=== PATIENT | male | born 1990 | race Caucasian/White ===

== ENCOUNTER 2016-11-30 13:42 | Emergency (ER) | payer BC, OTHER ==
[~2016-11-30] VITALS: Ht 162.6 cm; Wt 94.0 kg
[2016-11-30 13:53] VITALS: BP 137/77
--- NOTE | 2016-11-30 16:51 | NUR ---
PATIENT LEFT WITHOUT BEING SEEN BY DR. RANDOLPH. NO FURTHER CARE PROVIDED FOR PATIENT.
== END 2016-11-30 16:51 | disposition left against medical advice (07) ==
LOC: MED 13:42
DX: R06.4 Hyperventilation (principal); R11.0 Nausea; Z53.21 Procedure and treatment not carried out due to patient leaving prior to being seen by health care provider
CPT/HCPCS: 96372; 99285

== ENCOUNTER 2016-11-30 18:53 | Emergency (ER) | payer BC ==
[~2016-11-30] VITALS: Ht 162.6 cm; Wt 93.9 kg
[2016-11-30 19:02] VITALS: BP 153/80
--- NOTE | 2016-11-30 20:14 | NUR ---
PATIENT AMBULATED TO ER BED 4
[2016-11-30] MEDS ORDERED: ONDANSETRON 4 MG ODT PO ONE (20:20)
[2016-11-30] MEDS ORDERED: DICYCLOMINE HCL LIQUID 20 MG, ALUMINUM HYD/MAG/SIMETHICONE 30 ML, LIDOCAINE VISCOUS 2% ... PO ONE ×3 (20:20)
--- NOTE | 2016-11-30 20:35 | NUR ---
26Y/M PATIENT PRESENTS TO ED WITH C/O ANXIETY . PT STATES HAVING ANXIETY AND N/V X 3 DAYS. DENIES DIARRHEA; SKIN IS PINK/WARM/DRY; AAOX4 WITH EVEN AND STEADY GAIT; LUNGS CLEAR BL; HR EVEN AND REGULAR; PT DENIES ANY FEVER, CP, SOB, OR COUGH AT THIS TIME; PATIENT STATES PAIN OF 0/10 AT THIS TIME; VSS; PATIENT POSITIONED FOR COMFORT; HOB ELEVATED; BEDRAILS UP X2; BED DOWN. ER MD MADE AWARE OF PT STATUS.
[2016-11-30 21:04] LABS: ANION GAP 15.1 (8-16); CALCIUM 9.6 mg/dL (8.5-10.1); CARBON DIOXIDE 26.8 mmol/L (21-32); CREATININE 1.1 mg/dL (0.6-1.3); POTASSIUM 3.9 mmol/L (3.5-5.1)
[2016-11-30 21:10] LABS: ALBUMIN 4.4 g/dL (3.4-5.0); TOTAL BILIRUBIN 0.6 mg/dL (0.0-1.0); TOTAL PROTEIN, SERUM 8.9 g/dL (6.4-8.2)
--- NOTE | 2016-11-30 21:25 | NUR ---
Patient discharged with v/s stable. Written and verbal after care instructions given and explained. Patient alert, oriented and verbalized understanding of instructions. Ambulatory with steady gait. All questions addressed prior to discharge. ID band removed. Patient advised to follow up with PMD. Rx of ZOFRAN 4 MG, MAALOX given. Patient educated on indication of medication including possible reaction and side effects. Opportunity to ask questions provided and answered.
[2016-11-30 21:27] VITALS: BP 122/90
== END 2016-11-30 21:25 | disposition home or self-care (01) ==
LOC: MED 18:53
DX: R11.2 Nausea with vomiting, unspecified (principal); R10.10 Upper abdominal pain, unspecified; F12.90 Cannabis use, unspecified, uncomplicated
CPT/HCPCS: 36415; 80053; 83690; 99284; S0119; 99283

== ENCOUNTER 2016-12-03 07:44 | Inpatient (IN) | payer BC ==
[~2016-12-03] VITALS: Ht 162.6 cm; Wt 95.3 kg
[2016-12-03 07:47] VITALS: BP 125/70
--- NOTE | 2016-12-03 07:53 | NUR ---
Pt ambulated to bed 7 with steady gait.
--- NOTE | 2016-12-03 07:55 | NUR ---
26/M BIB SELF C/O N/V/D & EPIGASTRIUC PAIN X 3DAYS.PT STTED PT CAME HERE ON SATURDAY SAME S/S & WENT TO [facility] YESTERDAY ;GOT MEDS BUT DEOESN'T HELP. SKIN IS PINK/WARM/DRY; AAOX4 WITH EVEN AND STEADY GAIT; LUNGS CLEAR BL; HR EVEN AND REGULAR; PT DENIES ANY FEVER, CP, SOB, OR COUGH AT THIS TIME; PATIENT STATES PAIN OF 10/10 AT THIS TIME; VSS; PATIENT POSITIONED FOR COMFORT; HOB ELEVATED; BEDRAILS UP X2; BED DOWN. ER MD MADE AWARE OF PT STATUS.
--- NOTE | 2016-12-03 08:14 | NUR ---
ER MD DR POSADA EVALUATING PT AT BEDSIDE.
[2016-12-03] MEDS ORDERED: NACL 0.9% 2,000 ML IV ONE (08:20)
[2016-12-03] MEDS ORDERED: KETOROLAC 30 MG/ML VIAL IVP ONE (08:20)
[2016-12-03] MEDS ORDERED: ONDANSETRON 4 MG/2 ML VIAL IVP ONE (08:20)
[2016-12-03] MEDS ORDERED: METOCLOPRAMIDE 10 MG/2 ML INJ VIAL IVP ONE (08:20)
[2016-12-03 09:05] LABS: HEMATOCRIT 50.4 % (36-52); HEMOGLOBIN 16.9 g/dL (12.0-18.0); MEAN CORPUSCULAR HEMOGLOBIN 28 pg (27-31); MEAN CORPUSCULAR HGB CONC 34 g/dL (33-37); MEAN CORPUSCULAR VOLUME 84 fL (80-94); PLATELET COUNT (AUTO) 361 K/uL (140-450); RED BLOOD CELL COUNT(AUTO) 6.03 MIL/uL (4.20-6.10); RED CELL DISTRIBUTION WIDTH 11.9 % (11.6-13.7); WHITE BLOOD COUNT (AUTO) 17.1 K/uL (4.8-10.8)
[2016-12-03 09:07] LABS: CALCIUM 9.6 mg/dL (8.5-10.1); CARBON DIOXIDE 29.2 mmol/L (21-32); CREATININE 1.2 mg/dL (0.6-1.3); POTASSIUM 3.2 mmol/L (3.5-5.1)
--- NOTE | 2016-12-03 09:08 | NUR ---
PT STATED PT FEEL PANIC ATTACT. NOTIFIED ER MD DR POSADA. Addendum: 12/03/16 at 0922 by [email or web address] ATIVAN 2MG IV ORDERED. AFTER AMINISTERED ATIVAN,Patient appears to be resting comfortably in bed. Vital Signs within normal limits. Respirations even and unlabored. WILL CONTINUE TO MONITOR.
[2016-12-03] MEDS ORDERED: LORazepam 2 MG/ML VIAL IVP ONE (09:10)
[2016-12-03 09:12] LABS: ALBUMIN 4.5 g/dL (3.4-5.0); TOTAL BILIRUBIN 1.6 mg/dL (0.0-1.0); TOTAL PROTEIN, SERUM 9.1 g/dL (6.4-8.2)
[2016-12-03 09:18] LABS: INR 1.1 (0.8-1.2); PARTIAL THROMBOPLASTIN TIME 24.3 secs (22-35.6); PROTHROMBIN TIME 10.9 secs (10.8-13.4)
[2016-12-03 09:19] LABS: LYMPHOCYTES % (MANUAL) 13 % (20-46); NEUTROPHILS % (MANUAL) 81 (43-65)
[2016-12-03 09:20] LABS: EOSINOPHILS % (MANUAL) 2 % (0-4); MONOCYTES % (MANUAL) 4 % (5-12)
--- NOTE | 2016-12-03 09:20 | NUR ---
Patient appears to be resting comfortably in bed. Vital Signs within normal limits. Respirations even and unlabored.
[2016-12-03] MEDS ORDERED: LORazepam 2 MG/ML VIAL IVP PRN (09:50)
[2016-12-03] MEDS ORDERED: HYDROcodone/APAP 5/325 MG 1 TAB TAB PO PRN (09:50)
[2016-12-03] MEDS ORDERED: MORPHINE SULFATE 2 MG/ML SYR IVP PRN (09:50)
[2016-12-03] MEDS ORDERED: ACETAMINOPHEN 325 MG TAB PO PRN (09:50)
--- NOTE | 2016-12-03 10:38 | NUR ---
Patient will be admitted to care of DR MARROQUIN. Admited to MS. Will go to [id number]. Belongings list completed. Report to JANIA TREVINO.
[2016-12-03 11:30] VITALS: BP 139/74
[2016-12-03] MEDS ORDERED: KCL 20 MEQ/WATER INJ PREMIX 100 ML IV SCH (11:30)
--- NOTE | 2016-12-03 11:30 | NUR ---
PT ARRIVED IN [facility] FROM ER. PT IS ALERT AWAKE AND ORIENTED. INTRODUCED MYSELF. PT DENIES N&V OR PAIN AT THIS TIME. ORIENTED TO UNIT AND ROOM. STARTED PT ON IVF ORDERED. CALLED AND ORDERED SCDS ORDERED. PT HAS IV ON L HAND 20 G. PT STILL IS EXPERIENCING DIARRHEA. CALL LIGHT WITHIN REACH. WILL CONTINUE TO MONITOR.
[2016-12-03] MEDS: DEXT 5% /NACL 0.9% 1,000 ML IV SCH ×2 (11:34→20:33)
[2016-12-03] MEDS: METOCLOPRAMIDE 10 MG/2 ML INJ VIAL IVP SCH ×3 (11:46→23:03)
[2016-12-03 12:00] VITALS: BP 139/74
--- NOTE | 2016-12-03 12:30 | NUR ---
DR KIMBALL U/S ROSI, WILL KEEP PT NPO FOR 6 HOURS. PT VERBALIZED UNDERSTANDING.
--- NOTE | 2016-12-03 13:00 | NUR ---
PT WANTED TO TAKE SHOWER. WRAPPED PT'S IV. PT DENIES ANY DIZZINESS. WILL ASSIST AND MONITOR.
--- NOTE | 2016-12-03 14:40 | NUR ---
PT IS SLEEPING. NO DISTRESS NOTED. CALL LIGHT WITHIN REACH. WILL CONTINUE TO MONITOR.
[2016-12-03 16:00] VITALS: BP 129/60
--- NOTE | 2016-12-03 16:40 | NUR ---
PT STATED HIS ARM IS HURTING FROM IV. REASSURED PT THAT POTASSIUM CAUSES PAIN WHICH IS NORMAL. NO INFILTRATION NOTED. WILL CONTINUE TO MONITOR.
--- NOTE | 2016-12-03 17:40 | NUR ---
PT HAD AN EPISODE OF DIARRHEA. WILL CONTINUE TO MONITOR.
--- NOTE | 2016-12-03 17:50 | NUR ---
PT REQUESTED TO TAKE ANOTHER SHOWER. WRAPPED IV. ASSISTED PT TO SHOWER.
[2016-12-03] MEDS: ONDANSETRON 4 MG/2 ML VIAL IVP PRN (18:37)
--- NOTE | 2016-12-03 19:19 | NUR ---
ENDORSED CARE OF PT TO WATER REGULATOR AND VALVE REPAIRER NURSE. PT IN STABLE CONDITION.
--- NOTE | 2016-12-03 19:30 | NUR ---
RECEIVED REPORT FROM DAY RN AT BEDSIDE, PATIENT IS AAOX4 ON ROOM AIR, NO SOB OR SIGN OF DISTRESS AT THIS TIME, IV TO LEFT HAND PATENT AND INTACT, PATIENT DENIES PAIN AT THIS TIME, SKIN INTACT, DISCUSSED PLAN OF CARE WITH PATIENT, PATIENT VERBALIZED UNDERSTANDING, CALL LIGHT WITHIN REACH. WILL CONTINUE TO MONITOR.
[2016-12-03 19:54] LABS: AMPHETAMINE, URINE NEG. ng/ml (NEG <=1000); BARBITURATE, URINE NEG. ng/ml (NEG <=200); BENZODIAZEPINE, URINE NEG. ng/mL (NEG <=200); CANNABINOID, URINE POS. ng/mL (NEG <=50); COCAINE, URINE NEG. ng/mL (NEG <=300); OPIATE, URINE NEG. ng/mL (NEG <=2000); PHENCYCLIDINE SCREEN,URINE NEG. ng/mL (NEG <=25)
--- NOTE | 2016-12-03 22:15 | NUR ---
PATIENT ASKED TO TAKE SHOWER, PATIENT STABLE, ASSISTED TO SHOWER, WILL CONTINUE TO MONITOR
--- NOTE | 2016-12-03 23:08 | NUR ---
PATIENT VOMITING , ADMINISTERED REGLAN PER MD ORDER, WILL CONTINUE TO MONITOR.
[2016-12-04] VITALS: BP 140/86
--- NOTE | 2016-12-04 00:15 | NUR ---
VITAL SIGNS STABLE, NO SOB OR SIGN OF DISTRESS, CALL LIGHT WITHIN REACH. WILL CONTINUE TO MONITOR.
[2016-12-04] MEDS: ONDANSETRON 4 MG/2 ML VIAL IVP PRN (03:03)
--- NOTE | 2016-12-04 03:11 | NUR ---
PATIENT NAUSEOUS AND STATING HE FEELS ANXIOUS, ADMINISTERED ZOFRAN PER MD ORDER AND ATIVAN PER MD ORDER, WILL CONTINUE TO MONITOR PATIENT
--- NOTE | 2016-12-04 05:00 | NUR ---
PATIENT RESTING IN BED, NO SIGN OF DISTRESS, WILL CONTINUE TO MONITOR
[2016-12-04] MEDS: DEXT 5% /NACL 0.9% 1,000 ML IV SCH (05:57)
[2016-12-04] MEDS: METOCLOPRAMIDE 10 MG/2 ML INJ VIAL IVP SCH (06:18)
--- NOTE | 2016-12-04 07:30 | NUR ---
ENDORSED PATIENT TO DAY RN AT BEDSIDE, PATIENT IN STABLE CONDITION
--- NOTE | 2016-12-04 07:30 | NUR ---
RECEIVED PATIENT REPORT AT BEDSIDE. PATIENT AWAKE, ALERT ORIENTED AND AMBULATORY. NO S/S OF DISTRESS NOTED. NO C/O PAIN AT THIS TIME. IV LINE NOTED TO THE LEFT HAND. BED LOWERED WITH CALL LIGHT WITHIN REACH. WILL CONTINUE TO MONITOR
[2016-12-04 07:32] LABS: BASOPHILS # (AUTO) 0.2 K/uL (0.00-0.22); BASOPHILS % (AUTO) 1.3 % (0.0-2.0); EOSINOPHILS # (AUTO) 0.2 K/uL (0-0.4); EOSINOPHILS % (AUTO) 1.5 % (0.0-4.0); HEMATOCRIT 45.6 % (36-52); HEMOGLOBIN 15.4 g/dL (12.0-18.0); LYMPHOCYTES # (AUTO) 2.2 K/uL (2.0-11.5); LYMPHOCYTES % (AUTO) 17.3 % (20.5-51.1); MEAN CORPUSCULAR HEMOGLOBIN 29 pg (27-31); MEAN CORPUSCULAR HGB CONC 34 g/dL (33-37); MEAN CORPUSCULAR VOLUME 84 fL (80-94); MONOCYTES # (AUTO) 0.6 K/uL (0.8-1.0); MONOCYTES % (AUTO) 4.5 % (1.7-9.3); NEUTROPHILS # (AUTO) 9.3 K/uL (1.8-7.7); NEUTROPHILS % (AUTO) 75.4 % (42.2-75.2); PLATELET COUNT (AUTO) 256 K/uL (140-450); RED BLOOD CELL COUNT(AUTO) 5.41 MIL/uL (4.20-6.10); RED CELL DISTRIBUTION WIDTH 12.1 % (11.6-13.7); WHITE BLOOD COUNT (AUTO) 12.5 K/uL (4.8-10.8)
[2016-12-04 07:56] LABS: ALBUMIN 3.9 g/dL (3.4-5.0); ANION GAP 13.2 (8-16); CALCIUM 8.6 mg/dL (8.5-10.1); POTASSIUM 3.2 mmol/L (3.5-5.1); TOTAL PROTEIN, SERUM 7.8 g/dL (6.4-8.2)
[2016-12-04 08:00] VITALS: BP 135/74
[2016-12-04] MEDS ORDERED: PANTOPRAZOLE 40 MG INJ VIAL IVP SCH (09:00)
--- NOTE | 2016-12-04 09:19 | NUR ---
PATIENT HAS BEEN SCREENED AND CATEGORIZED HIGH NUTRITION RISK. PATIENT WILL BE SEEN WITHIN 1-2 DAYS OF ADMISSION. 12/03/16-12/04/[address]
--- NOTE | 2016-12-04 10:36 | NUR ---
CONSENT FOR EGD OBTAINED FROM THE PATIENT. CONSENT FILED IN THE CHART
[2016-12-04] MEDS ORDERED: METOCLOPRAMIDE 10 MG/2 ML INJ VIAL IVP SCH (12:00)
--- NOTE | 2016-12-04 12:56 | NUR ---
SPOKE WITH DR POLLOCK. ORDERS TO RESUME THE DIET THE PATIENT WAS PREVIOUSLY ON. ORDERS TO PUT PATIENT NPO AFTER MIDNIGHT IF HIS VOMITING PERSISTS
--- NOTE | 2016-12-04 13:07 | NUR ---
PATIENT SEEN BY DR Niles MARROQUIN
--- NOTE | 2016-12-04 15:10 | NUR ---
CM NOTE PER CLASSIFIED ADVERTISING MANAGER MARGARET, TRACKING# [id number]. FAXED INITIAL REVIEW TO [facility] [phone]
--- NOTE | 2016-12-04 15:18 | NUR ---
12/04/16 RD INITIAL ASSESSMENT COMPLETED PLEASE REFER TO NUTRITION ASSESSMENT UNDER CARE ACTIVITY FOR ESTIMATED NUTRITIONAL NEEDS. 1. WHEN MEDICALLY FEASIBLE, RESUME PO DIET: CLEAR LIQUID DIET, ADVANCE TOLERATED TO REGULAR DIET 2. RD TO FOLLOW-UP 2-3 DAYS; HIGH RISK AMRIK OWEN RD
[2016-12-04 15:20] LABS: HEPATITIS A ANTIBODY IGM Negative (Negative); HEPATITIS A ANTIBODY TOTAL Positive (Negative); HEPATITIS B CORE AB TOTAL Negative (Negative); HEPATITIS B CORE, IGM Negative (Negative); HEPATITIS B SURFACE AB Reactive (.); HEPATITIS B SURFACE ANTIGEN Negative (Negative); HEPATITIS C VIRUS ANTIBODY <0.1 s/co ratio (0.0-0.9)
--- NOTE | 2016-12-04 15:48 | NUR ---
PATIENT REQUESTED TO LEAVE AMA. PATIENT INFORMED ABOUT THE RISKS OF GOING AMA. PATIENT VERBALIZED UNDERSTANDING. PATIENT SIGNED AMA FORM. IV LINE DISCONTINUED. PATIENT LEFT WITH ALL HIS BELONGINGS. DR Niles MARROQUIN PAGED
[2016-12-04] MEDS ORDERED: AMITRIPTYLINE 10 MG TAB PO SCH (21:00)
== END 2016-12-04 15:50 | disposition left against medical advice (07) | DRG 392 ==
LOC: MED 07:44 → MTU 09:54
PROVIDERS: ADMIT Preventive Medicine Preventive Medicine/Occupational Environmental Medicine; ATTEND Preventive Medicine Preventive Medicine/Occupational Environmental Medicine
DX: R10.9 Unspecified abdominal pain (principal); R11.2 Nausea with vomiting, unspecified; R74.0 Nonspecific elevation of levels of transaminase and lactic acid dehydrogenase [LDH]; R73.9 Hyperglycemia, unspecified; Z53.21 Procedure and treatment not carried out due to patient leaving prior to being seen by health care provider; E87.5 Hyperkalemia; D72.829 Elevated white blood cell count, unspecified; I10 Essential (primary) hypertension; R74.8 Abnormal levels of other serum enzymes; K76.0 Fatty (change of) liver, not elsewhere classified; F14.90 Cocaine use, unspecified, uncomplicated; Z72.89 Other problems related to lifestyle
CPT/HCPCS: 36415; 74000; 76705; 80053; 80305; 83605; 83690; 85025; 85610; 85730; 86704; 86706; 86708; 86709; 86803; 87040; 87081; 87086; 87340; 96374; 96375; 99285; C9113; J1885; J2060; J2405; J2765; J3480; J7030; J7042; Q0092

== ENCOUNTER 2017-03-30 23:31 | Emergency (ER) | payer BC ==
--- NOTE | 2017-03-30 23:56 | NUR ---
PATIENT LEFT WITHOUT BEING SEEN BY DR. BRAND. NO FURTHER CARE PROVIDED FOR PATIENT.
== END 2017-03-30 23:55 | disposition left against medical advice (07) ==
LOC: MED 23:31
DX: R11.10 Vomiting, unspecified (principal); R06.02 Shortness of breath; Z53.21 Procedure and treatment not carried out due to patient leaving prior to being seen by health care provider

== ENCOUNTER 2017-04-02 18:54 | Inpatient (IN) | payer BC ==
[~2017-04-02] VITALS: Ht 165.1 cm; Wt 81.3 kg
[2017-04-02 19:02] VITALS: BP 138/110
--- NOTE | 2017-04-02 19:15 | NUR ---
PLACED IN BED 6. HERE FOR NAUSEA,VOMITING,DIARRHEA,ABDOMINAL PAIN X 1 WEEK. MD AT BEDSIDE TO EVALUATE PT.
[2017-04-02] MEDS ORDERED: NACL 0.9% 1,000 ML IV SCH (19:24)
[2017-04-02] MEDS ORDERED: METOCLOPRAMIDE 10 MG/2 ML INJ VIAL IVP ONE (19:25)
[2017-04-02] MEDS ORDERED: PANTOPRAZOLE 40 MG INJ VIAL IVP ONE (19:25)
--- NOTE | 2017-04-02 19:40 | NUR ---
GAUGE 18 IV LINE ESTABLISHED TO THE LEFT AC. BLOOD DRAWN AND SENT TO THE LAB. NS 1 LITER BOLUS,REGLAN 5 MG IVP AND PROTONIX 40 MG IVP GIVEN ORDERED.
--- NOTE | 2017-04-02 19:52 | NUR ---
PT.BECAME VERY ANXIOUS AND RESTLESS. REQUESTED THAT FLUID BE STOPPED AND IV LINE TAKEN OUT. MADE AWARE.
[2017-04-02] MEDS ORDERED: diphenhydrAMINE 50 MG/ML VIAL IVP ONE ×2 (19:55→20:05)
--- NOTE | 2017-04-02 20:00 | NUR ---
GAUGE 20 IV LINE ESTABLISHED TO THE RIGHT HAND. IV FLUIDIV BENADRYL 25 MG IVP GIVEN ORDERED. IV FLUIDS RESUMED. PT.HOOKED TO THE MONITOR.
[2017-04-02 20:02] LABS: EOSINOPHILS # (AUTO) 0.1 K/uL (0-0.4)
[2017-04-02 20:10] LABS: BASOPHILS # (AUTO) 0.2 K/uL (0.00-0.22); BASOPHILS % (AUTO) 1.5 % (0.0-2.0); EOSINOPHILS % (AUTO) 0.8 % (0.0-4.0); HEMATOCRIT 52.6 % (36-52); HEMOGLOBIN 17.5 g/dL (12.0-18.0); LYMPHOCYTES # (AUTO) 2.7 K/uL (2.0-11.5); LYMPHOCYTES % (AUTO) 16.4 % (20.5-51.1); MEAN CORPUSCULAR HEMOGLOBIN 28 pg (27-31); MEAN CORPUSCULAR HGB CONC 33 g/dL (33-37); MEAN CORPUSCULAR VOLUME 84 fL (80-94); MONOCYTES # (AUTO) 1.2 K/uL (0.8-1.0); MONOCYTES % (AUTO) 7.1 % (1.7-9.3); NEUTROPHILS # (AUTO) 12.3 K/uL (1.8-7.7); NEUTROPHILS % (AUTO) 74.2 % (42.2-75.2); PLATELET COUNT (AUTO) 316 K/uL (140-450); RED BLOOD CELL COUNT(AUTO) 6.28 MIL/uL (4.20-6.10); RED CELL DISTRIBUTION WIDTH 11.9 % (11.6-13.7); WHITE BLOOD COUNT (AUTO) 16.5 K/uL (4.8-10.8)
--- NOTE | 2017-04-02 20:10 | NUR ---
PT.PULLED OUT RIGHT HAND IV LINE. PT. STILL RESTLES AND ANXIOUS. MADE AWARE.
--- NOTE | 2017-04-02 20:12 | NUR ---
ANOTHER DOSE OF BENADRYL 25 MG IVP GIVEN ORDERED.
[2017-04-02 20:18] LABS: ALBUMIN 4.5 g/dL (3.4-5.0); CARBON DIOXIDE 30.8 mmol/L (21-32); CREATININE 1.1 mg/dL (0.7-1.3); TOTAL BILIRUBIN 1.6 mg/dL (0.0-1.0)
[2017-04-02 20:19] LABS: ANION GAP 14.1 (8-16)
[2017-04-02 20:20] LABS: POTASSIUM 2.9 mmol/L (3.5-5.1)
[2017-04-02] MEDS ORDERED: KCL 20 MEQ/WATER INJ PREMIX 100 ML IV ONE (20:30)
--- NOTE | 2017-04-02 20:40 | NUR ---
URINE SPECIMEN COLLECTED. WILL SEND TO LAB. WENT FOR CT SCAN OF ABDOMEN AND PELVIS VIA WHEELCHAIR.
[2017-04-02 20:54] LABS: APPEARANCE,URINE CLEAR (CLEAR); BILIRUBIN,URINE NEGATIVE (NEGATIVE); BLOOD, URINE NEGATIVE (NEGATIVE); COLOR,URINE YELLOW (YELLOW); LEUKOCYTE ESTERASE ,URINE NEGATIVE (NEGATIVE); NITRITE, URINE NEGATIVE (NEGATIVE); PH,URINE 6.5 (5.0-9.0); UGLUCOSE NEGATIVE (NEGATIVE)
[2017-04-02] MEDS ORDERED: DOCUSATE SODIUM 100 MG GELCAP PO PRN (20:55)
[2017-04-02] MEDS ORDERED: ACETAMINOPHEN 325 MG TAB PO PRN (20:55)
[2017-04-02] MEDS ORDERED: ONDANSETRON 4 MG/2 ML VIAL IM/IVP PRN (20:55)
[2017-04-02] MEDS ORDERED: HYDROcodone/APAP 7.5/325 MG 1 TAB PO PRN (20:55)
[2017-04-02] MEDS ORDERED: MORPHINE SULFATE 2 MG/ML SYR IVP PRN (20:55)
--- NOTE | 2017-04-02 20:55 | NUR ---
BACK FROM CT SCAN. KCL 20 MEQ IV GIVEN TO RUN OVER 2 HOURS.
--- NOTE | 2017-04-02 21:15 | NUR ---
PORTABLE CXR DONE.
--- NOTE | 2017-04-02 21:20 | NUR ---
PT. ADMITTED TO TELEMETRY UNIT FOR HYPOKALEMIA, TRANSAMINITIS UNDER THE SERVICE OF . REPORT GIVEN TO CHAU DYKES. PT. GOING TO ROOM 116. PT. STABLE, MORE RELAXED. NAUSEA AND PAIN RESOLVED.
[2017-04-02 21:24] LABS: BARBITURATE, URINE NEG. ng/ml (NEG <=200); BENZODIAZEPINE, URINE NEG. ng/mL (NEG <=200); CANNABINOID, URINE POS. ng/mL (NEG <=50); COCAINE, URINE NEG. ng/mL (NEG <=300); OPIATE, URINE NEG. ng/mL (NEG <=2000); PHENCYCLIDINE SCREEN,URINE NEG. ng/mL (NEG <=25)
[2017-04-02] MEDS ORDERED: POTASSIUM CHLORIDE 20 MEQ, LIDOCAINE 1% 25 MG in NACL 0.9% 250 ML IV SCH (21:30)
[2017-04-02 21:34] LABS: CHOL/HDL RATIO 5.6 (1-4.5); FREE T4 (FREE THYROXINE) 1.47 ng/dL (0.76-1.46); MAGNESIUM 2.4 mg/dL (1.8-2.4); PHOSPHORUS 2.9 mg/dL (2.5-4.9); THYROID STIMULATING HORMONE 2.53 uIU/mL (0.34-3.74)
--- NOTE | 2017-04-02 21:37 | NUR ---
TRANSFERRED TO FLOOR VIA ACLS PROTOCOL STABLE. TRANSFER UNEVENTFUL.
[2017-04-02] MEDS ORDERED: KCL 20 MEQ/WATER INJ PREMIX 100 ML IV SCH (21:45)
--- NOTE | 2017-04-02 21:50 | NUR ---
ADMITTED PATIENT TO THE TELE UNIT, PATIENT AWAKE ALERT ORIENTED X4, NO S/S OF ACUTE DISTRESS NOTED, RESPIRATION EVEN AND UNLABORED, IV PATENT AND INTACT, INFUSING POTASSIUM CHLORIDE AT 50ML/HR. TELE MONITOR IS PLACED ON PATIENT. PLAN OF CARE DISCUSSED, PATIENT VERBALIZED UNDERSTANDING. CALL LIGHT WITHIN REACH, SAFETY MEASURE ENSURED, WILL CONTINUE TO MONITOR.
[2017-04-02] MEDS: NACL 0.9% 1,000 ML IV SCH (21:51)
[2017-04-02 22:05] VITALS: BP 143/57
--- NOTE | 2017-04-02 22:10 | NUR ---
DR. OBRIEN IS EXAMINING THE PATIENT AT THE BEDSIDE.
--- NOTE | 2017-04-03 01:02 | NUR ---
PATIENT IS SLEEPING AT THIS TIME, POTASSIUM CHLORIDE 20MEQ STILL RUNNING BECAUSE PATIENT TOOK A SHOWER AROUND 2330, DR. OBRIEN IS AWARE. CALL LIGHT WITHIN REACH, SAFETY MEASURE ENSURED, WILL CONTINUE TO MONITOR.
--- NOTE | 2017-04-03 03:37 | NUR ---
PATIENT IS OFF THE UNIT TO GET ABDOMINAL CT. PATIENT IS IN STABLE CONDITION.
[2017-04-03 04:07] VITALS: BP 138/73
--- NOTE | 2017-04-03 04:08 | NUR ---
PATIENT BACK FROM THE CT, NO S/S OF ACUTE DISTRESS NOTED, RESPIRATION EVEN AND UNLABORED, CALL LIGHT WITHIN REACH, SAFETY MEASURE ENSURED, WILL CONTINUE TO MONITOR.
[2017-04-03] MEDS: NACL 0.9% 1,000 ML IV SCH (04:50)
[2017-04-03 06:12] LABS: HEMATOCRIT 50.6 % (36-52); HEMOGLOBIN 16.5 g/dL (12.0-18.0); MEAN CORPUSCULAR HEMOGLOBIN 28 pg (27-31); MEAN CORPUSCULAR HGB CONC 33 g/dL (33-37); MEAN CORPUSCULAR VOLUME 85 fL (80-94); PLATELET COUNT (AUTO) 300 K/uL (140-450); RED BLOOD CELL COUNT(AUTO) 5.98 MIL/uL (4.20-6.10); RED CELL DISTRIBUTION WIDTH 11.9 % (11.6-13.7); WHITE BLOOD COUNT (AUTO) 13.9 K/uL (4.8-10.8)
--- NOTE | 2017-04-03 06:20 | NUR ---
PATIENT IS SLEEPING AT THIS TIME, NO S/S OF ACUTE DISTRESS NOTED, RESPIRATION EVEN AND UNLABORED, CALL LIGHT WITHIN REACH, SAFETY MEASURE ENSURED, WILL CONTINUE TO MONITOR.
[2017-04-03 06:21] LABS: ANION GAP 9.2 (8-16); CARBON DIOXIDE 35.8 mmol/L (21-32); CREATININE 1.1 mg/dL (0.7-1.3)
[2017-04-03 06:43] LABS: LYMPHOCYTES % (MANUAL) 25 % (20-46); MONOCYTES % (MANUAL) 7 % (5-12)
[2017-04-03 07:02] LABS: BILIRUBIN,DIRECT 0.2 mg/dL (0.0-0.3); TOTAL BILIRUBIN 1.3 mg/dL (0.0-1.0)
[2017-04-03 07:03] LABS: ALBUMIN 4.1 g/dL (3.4-5.0)
--- NOTE | 2017-04-03 07:15 | NUR ---
ENDORSED PLAN OF CARE TO DAY RN. PATIENT RESTING IN BED, NO S/S OF ACUTE DISTRESS, PATIENT IS IN STABLE CONDITION.
--- NOTE | 2017-04-03 07:22 | NUR ---
RECEIVED REPORT FROM SALON ASSISTANT NURSE, PT IS IN ROOM, FINISHED TAKING A SHOWER AT THIS TIME, PT IS A/OX4, AMBULATORY, IV IS ON THE LEFT AC PATENT, INTACT, FLUSHING WELL, SKIN IS INTACT, NO S/S OF RESPIRATORY DISTRESS OR DISCOMFORT NOTED, DISCUSSED PLAN OF CARE WITH PT, PT VERBALIZED UNDERSTANDING, SAFETY/FALL PRECAUTIONS ARE IN PLACE, CALL LIGHT WITHIN REACH, WILL CONTINUE TO MONITOR.
[2017-04-03 08:00] VITALS: BP 149/80
--- NOTE | 2017-04-03 09:40 | NUR ---
PATIENT ASKED HOW MUCH LONGER WAS HE GOING TO BE NPO. I LET THE PATIENT KNOW WE WERE WAITING FOR THE GI DOCTOR TO SEE HIM AND CLEAR HIM. I LET HIM KNOW I DID NOT KNOW THE EXACT TIME HE WOULD BE COMING IN.
--- NOTE | 2017-04-03 11:00 | NUR ---
WALKED IN THE ROOM TO CHECK ON PATIENT. PATIENT LET ME KNOW HE HAD REMOVED HIS OWN IV BECAUSE IT WAS BOTHERING HIM. I LET THE PATIENT KNOW THAT HE NEEDED THE IV TO RECEIVE HIS IVF AND IT WAS IMPORTANT FOR HIM TO HAVE IT SINCE HE IS ALSO NPO. PT REFUSED A NEW IV AT THIS TIME, DR. RABAGO WAS NOTIFIED.
--- NOTE | 2017-04-03 12:00 | NUR ---
PATIENT REFUSED TO HAVE BLOOD PRESSURE TAKEN AND TO BE PUT BACK ON TELE, PT STATED HE WAS GOING TO LEAVE AMA BECAUSE HE DID NOT WANT TO WAIT FOR THE GI DOCTOR. I LET THE PATIENT KNOW I WAS GOING TO INFORM THE ATTENDING DOCTOR, DR. IBARRA.
--- NOTE | 2017-04-03 12:30 | NUR ---
DR. IBARRA IN THE PATIENT'S ROOM DISCUSSING THE RISKS OF LEAVING AMA. PT UNDERSTOOD BUT STILL DECIDED TO LEAVE AMA.
--- NOTE | 2017-04-03 13:13 | NUR ---
04/03/17 RD INITIAL NUTRITION ASSESSMENT COMPLETE DIETITIAN RECOMMENDATIONS: 1. WHEN MEDICALLY FEASIBLE, INITIATE PO DIET - TO START ON CLEAR LIQUID DIET, ADVANCE TOLERATED TO CARDIAC DIET 2. RD TO FOLLOW-UP 2-3 DAYS, HIGH RISK AMRIK OWEN RD
--- NOTE | 2017-04-03 14:28 | NUR ---
CM NOTE PER DATABASE SUPPORT MARGARET EXT [id number], SHE SPOKE WITH BRITTANI OF [facility] [phone] WHO SAID THAT THIS ADMISSION IS AUTHORIZED FOR 1 DAY AUTH# [id number], NO REVIEW NEEDED FOR 1 DAY, IF PATIENT STAYS MORE THAN 1 DAY TO SEND REVIEWS TO [facility] FAX [phone].
[2017-04-04 06:18] LABS: HEPATITIS A ANTIBODY IGM Negative (Negative); HEPATITIS B CORE AB TOTAL Negative (Negative); HEPATITIS B SURFACE AB Reactive (.); HEPATITIS B SURFACE ANTIGEN Negative (Negative)
== END 2017-04-03 12:35 | disposition left against medical advice (07) | DRG 392 ==
LOC: MED 18:54 → MTU 20:57
PROVIDERS: ADMIT Family Medicine; ATTEND Family Medicine
DX: A08.4 Viral intestinal infection, unspecified (principal); E87.1 Hypo-osmolality and hyponatremia; K56.7 Ileus, unspecified; E87.6 Hypokalemia; I16.0 Hypertensive urgency; E78.5 Hyperlipidemia, unspecified; E66.9 Obesity, unspecified; F17.200 Nicotine dependence, unspecified, uncomplicated; Z68.30 Body mass index [BMI] 30.0-30.9, adult; F12.188 Cannabis abuse with other cannabis-induced disorder; Z53.21 Procedure and treatment not carried out due to patient leaving prior to being seen by health care provider
CPT/HCPCS: 36415; 71010; 80048; 80053; 80076; 80305; 81003; 82150; 83036; 83690; 83735; 83880; 84100; 84436; 84439; 84443; 84479; 85025; 85610; 85730; 86704; 86706; 86708; 86709; 86803; 87081; 87340; 93005; 96361; 96365; 96375; 99285; C9113; J1200; J2001; J2765; J3480; J7030

== ENCOUNTER 2017-04-04 19:54 | Emergency (ER) | payer SELFPAY ==
--- NOTE | 2017-04-04 20:16 | NUR ---
PATIENT LEFT WITHOUT BEING SEEN BY DR. REYES. NO FURTHER CARE PROVIDED FOR PATIENT.
[2017-04-05] MEDS ORDERED: LORA-476 PO (11:27)
== END 2017-04-04 20:16 | disposition left against medical advice (07) ==
LOC: MED 19:54
DX: R10.9 Unspecified abdominal pain (principal); Z53.21 Procedure and treatment not carried out due to patient leaving prior to being seen by health care provider

== ENCOUNTER 2017-04-05 09:17 | Inpatient (IN) | payer BC ==
[~2017-04-05] VITALS: Ht 165.1 cm; Wt 70.3 kg
[2017-04-05 09:19] VITALS: BP 144/85
--- NOTE | 2017-04-05 09:30 | NUR ---
Patient being evaluated by DR JIMENEZ at bedside.
[2017-04-05] MEDS ORDERED: DICYCLOMINE 20 MG/2 ML VIAL IM ONE (09:35)
--- NOTE | 2017-04-05 09:37 | NUR ---
26/M BIB FAMILY C/O N/V & EPIGASTRIC PAIN & RADIATES TO BILAT FLANK x 8 DAYS. PT STATES HE HAS N/V BUT DENIES BM X 1 WK. SKIN IS PINK/WARM/DRY; AAOX4 WITH EVEN AND STEADY GAIT; LUNGS CLEAR BL; PATIENT STATES PAIN OF 8/10 AT THIS TIME; PATIENT POSITIONED FOR COMFORT; HOB ELEVATED; BEDRAILS UP X2; BED DOWN. ER MD MADE AWARE OF PT STATUS.
--- NOTE | 2017-04-05 09:37 | NUR ---
Note undone in EDM - 04/05/17 at 1002 by MED1 / PRESENT TO ER C/O BILAT FLANK PAIN x 8 DAYS. PT STATES HE HAS N/V BUT DENIES DIARRHEA. PT STS LAST BM 7 DAYS AGO. SKIN IS PINK/WARM/DRY; AAOX4 WITH EVEN AND STEADY GAIT; LUNGS CLEAR BL; PATIENT STATES PAIN OF 8/10 AT THIS TIME; PATIENT POSITIONED FOR COMFORT; HOB ELEVATED; BEDRAILS UP X2; BED DOWN. ER MADE AWARE OF PT STATUS.
--- NOTE | 2017-04-05 09:42 | NUR ---
LAB AT BEDSIDE.
[2017-04-05 09:50] LABS: HEMATOCRIT 55.7 % (36-52); HEMOGLOBIN 18.5 g/dL (12.0-18.0); MEAN CORPUSCULAR HEMOGLOBIN 28 pg (27-31); MEAN CORPUSCULAR HGB CONC 33 g/dL (33-37); MEAN CORPUSCULAR VOLUME 84 fL (80-94); PLATELET COUNT (AUTO) 424 K/uL (140-450); RED BLOOD CELL COUNT(AUTO) 6.62 MIL/uL (4.20-6.10); WHITE BLOOD COUNT (AUTO) 21.9 K/uL (4.8-10.8)
[2017-04-05 10:10] LABS: ANION GAP 11.1 (8-16); CARBON DIOXIDE 30.7 mmol/L (21-32); CREATININE 1.7 mg/dL (0.7-1.3); LYMPHOCYTES % (MANUAL) 16 % (20-46); MONOCYTES % (MANUAL) 2 % (5-12); TOTAL BILIRUBIN 1.9 mg/dL (0.0-1.0)
[2017-04-05 10:14] LABS: POTASSIUM 2.8 mmol/L (3.5-5.1)
[2017-04-05] MEDS ORDERED: ONDANSETRON 4 MG/2 ML VIAL IVP ONE (10:20)
[2017-04-05] MEDS ORDERED: KCL 20 MEQ/WATER INJ PREMIX 100 ML IV ONE (10:20)
[2017-04-05] MEDS ORDERED: NACL 0.9% 3,000 ML IV ONE (10:20)
[2017-04-05] MEDS: NACL 0.9% 1,000 ML IV SCH ×2 (10:59→18:51)
[2017-04-05] MEDS ORDERED: KETOROLAC 30 MG/ML VIAL IVP PRN ×2 (11:00→11:45)
[2017-04-05] MEDS ORDERED: HYDROcodone/APAP 7.5/325 MG 1 TAB PO PRN (11:00)
[2017-04-05] MEDS ORDERED: ACETAMINOPHEN 325 MG TAB PO PRN (11:00)
[2017-04-05] MEDS ORDERED: MORPHINE SULFATE 2 MG/ML SYR IVP PRN (11:00)
[2017-04-05] MEDS ORDERED: ONDANSETRON 4 MG/2 ML VIAL IM/IVP PRN (11:00)
[2017-04-05] MEDS ORDERED: DOCUSATE SODIUM 100 MG GELCAP PO PRN (11:00)
--- NOTE | 2017-04-05 11:25 | NUR ---
gave report to ho todd.
--- NOTE | 2017-04-05 11:26 | NUR ---
Patient will be admitted to care of RABIA PHAM. Admited to TELE. Will go to room 120A. Belongings list completed. Report to JANIA CAMPBELL.
[2017-04-05] MEDS ORDERED: LORA-476 PO (11:27)
[2017-04-05 11:37] LABS: CHOL/HDL RATIO 5.2 (1-4.5); FREE T4 (FREE THYROXINE) 1.53 ng/dL (0.76-1.46); MAGNESIUM 2.1 mg/dL (1.8-2.4); PHOSPHORUS 4.1 mg/dL (2.5-4.9); THYROID STIMULATING HORMONE 2.17 uIU/mL (0.34-3.74)
--- NOTE | 2017-04-05 11:41 | NUR ---
Admitted from ER, with chief complaint of ABDOMINAL PAIN, VOMITTING , 26 y/o ,Male, Cooperative, AAOX4, NO S/S OF ACUTE DISTRESS. PT DENIES PAIN AT THIS TIME, IV SITE PATENT AND INTACT, PLAN OF CARE DISCUSSED, PT VERBALIZED UNDERSTANDING, PT oriented to call light, bed, phone,television, bathroom, smoking policy,visiting hours, procedures, ID bracelet on. Belongings list checked. CALL LIGHT WITHIN REACH. SAFETY MEASURES ENSURED. WILL CONTINUE TO MONITOR.
[2017-04-05 11:51] LABS: PROTHROMBIN TIME 11.6 secs (10.8-13.4)
[2017-04-05 12:30] VITALS: BP 123/86
[2017-04-05 13:15] LABS: BILIRUBIN,URINE 1+ (NEGATIVE); BLOOD, URINE TRACE-I (NEGATIVE); COLOR,URINE YELLOW (YELLOW); LEUKOCYTE ESTERASE ,URINE NEGATIVE (NEGATIVE); NITRITE, URINE NEGATIVE (NEGATIVE); UGLUCOSE NEGATIVE (NEGATIVE)
[2017-04-05 13:19] LABS: BARBITURATE, URINE NEG. ng/ml (NEG <=200); BENZODIAZEPINE, URINE NEG. ng/mL (NEG <=200); CANNABINOID, URINE POS. ng/mL (NEG <=50); COCAINE, URINE NEG. ng/mL (NEG <=300); OPIATE, URINE NEG. ng/mL (NEG <=2000); PHENCYCLIDINE SCREEN,URINE NEG. ng/mL (NEG <=25)
[2017-04-05] MEDS ORDERED: LACTULOSE 20 GM/30 ML UDC PO SCH (13:30)
[2017-04-05] MEDS ORDERED: SODIUM CHLORIDE 1 GM TAB PO SCH (13:30)
[2017-04-05] MEDS: LEVOFLOXACIN 750 MG/D5W PREMIX 150 ML IV SCH (13:35)
[2017-04-05 13:41] LABS: APPEARANCE,URINE HAZY (CLEAR); RBC,URINE 0-5 (RARE) /HPF (0-5); WBC,URINE 0-5 (RARE) /HPF (0-5)
--- NOTE | 2017-04-05 14:17 | NUR ---
PT RESTING IN BED NO S/S OF ACUTE DISTRESS. CALL LIGHT WITHIN REACH. SAFETY MEASURES ENSURED. WILL CONTINUE TO MONITOR.
[2017-04-05] MEDS ORDERED: HYDROcodone/APAP 5/325 MG 1 TAB TAB PO PRN (14:55)
[2017-04-05] MEDS: metroNIDAZOLE 250 MG/NS PREMIX 50 ML IV SCH ×2 (14:58→21:02)
[2017-04-05 16:00] VITALS: BP 132/73
--- NOTE | 2017-04-05 16:30 | NUR ---
RECEIVED SBAR REPORT FROM JANIA CAMPBELL AT PT BEDSIDE. PATIENT RESTING IN BED, NO S/S OF ACUTE DISTRESS. ALERT AND ORIENTED. CALL LIGHT WITHIN REACH. DENIES ABDOMINAL PAIN. DENIES N/V. WILL CONTINUE TO MONITOR.
--- NOTE | 2017-04-05 18:31 | NUR ---
PATIENT SEEN BY PCP AT BEDSIDE. NO S/S OF ACUTE DISTRESS. TOLERATING PO CLEAR LIQUID DIET.
--- NOTE | 2017-04-05 19:32 | NUR ---
RECEIVED PT FROM DAY NURSE, PT IS AAOX4, PT IS ON RA, NO S/S OF DISTRESS NOTED. IV TO L HAND 20G PATENT AND INTACT, INFUSING WELL. SKIN IS INTACT/. RESPIRATIONS ARE EVEN AND UNLABORED. BOWEL SOUNDS PRESENT. INITIAL ASSESSMENT COMPLETED. PLAN OF CARE DISCUSSED WITH PT, PT VERBALIZED UNDERSTANDING. ALL SAFETY PRECAUTIONS MET, CALL LIGHT WITHIN REACH, WILL CONTINUE TO MONITOR.
--- NOTE | 2017-04-05 19:32 | NUR ---
ENDORSED PLAN OF CARE TO JANIA DEL UNA AT PT BEDSIDE. NO S/S OF ACUTE DISTRESS.
[2017-04-05 20:00] VITALS: BP 135/68
[2017-04-05] MEDS: SODIUM CHLORIDE 1 GM TAB PO SCH (21:01)
[2017-04-05] MEDS: LORazepam 1 MG TAB PO PRN (21:01)
--- NOTE | 2017-04-05 21:02 | NUR ---
FLAGYL 250 MG STARTED ON 04/05/17 AT 2102, FINISHED AT 2202 ON 04/05/17.
[2017-04-06] VITALS: BP 139/93
--- NOTE | 2017-04-06 | NUR ---
PT RESTING COMFORTABLY IN BED NO S/S OF DISTRESS NOTED. ALL SAFETY PRECAUTIONS MET, CALL LIGHT WITHIN REACH, WILL CONTINUE TO MONITOR
--- NOTE | 2017-04-06 02:07 | NUR ---
GAVE REPORT AT THE BEDSIDE TO ANNALISA BISHOP RN FOR CONTINUITY OF CARE. PT IN STABLE CONDITION
[2017-04-06] MEDS: NACL 0.9% 1,000 ML IV SCH ×3 (03:31→17:57)
--- NOTE | 2017-04-06 03:45 | NUR ---
IV ACCES ON LEFT HAND DISCONTINUED. NEW IV ACCESS ON RIGHT FOREARM 20G RUNNING NS AT 130ML/HR. IV ACCESS IS INTACT, PATENT AND ASYMPTOMATIC. PT TOLERATED WELL. WILL CONTINUE TO MONITOR.
[2017-04-06 04:00] VITALS: BP 126/64
--- NOTE | 2017-04-06 04:05 | NUR ---
PT IS AWAKE, RESTING IN BED. NO SIGNS OF ACUTE DISTRESS, BED ON LOW POSITION, BILATERAL HALF SIDE RAILS UP, CALL LIGHT WITHIN REACH, WILL CONTINUE TO MONITOR.
[2017-04-06] MEDS: metroNIDAZOLE 250 MG/NS PREMIX 50 ML IV SCH ×2 (05:15→12:06)
--- NOTE | 2017-04-06 05:40 | NUR ---
PAGED DR. OLIVAS TO REQUEST NEW MEDICATION ORDERS. NO PENDING OR ACTIVE ORDERS AT THIS TIME. WILL WAIT FOR CALLBACK. Addendum: 04/06/17 at 0602 by Emmy Lopez RN DISREGARD ABOVE NOTATION. WRONG PATIENT.
--- NOTE | 2017-04-06 05:58 | NUR ---
PT IS AWAKE, RESTING IN BED. SITTER AT THE BEDSIDE. ALL SAFETY MEASURES IN PLACE. BED ON LOW POSITION, BILATERAL HALF SIDE RAILS UP, CALL LIGHT WITHIN REACH, WILL CONTINUE TO MONITOR. Addendum: 04/06/17 at 0600 by Emmy Lopez RN DISREGARD ABOVE NOTATION. WRONG PATIENT.
--- NOTE | 2017-04-06 06:00 | NUR ---
PT IS SLEEPING, EASY TO AROUSE. BED ON LOW POSITION, BILATERAL HALF SIDE RAILS UP, CALL LIGHT WITHIN REACH, WILL CONTINUE TO MONITOR.
--- NOTE | 2017-04-06 06:41 | NUR ---
PATIENT HAS BEEN SCREENED AND CATEGORIZED HIGH NUTRITION RISK. PATIENT WILL BE SEEN WITHIN 1-2 DAYS OF ADMISSION. 04/06/17-04/07/17 MILENA TOM MS, RDN
[2017-04-06 06:57] LABS: ANION GAP 9.9 (8-16); CARBON DIOXIDE 32.5 mmol/L (21-32); CREATININE 0.9 mg/dL (0.7-1.3); POTASSIUM 3.4 mmol/L (3.5-5.1)
[2017-04-06 07:01] LABS: ALBUMIN 3.7 g/dL (3.4-5.0); BILIRUBIN,DIRECT 0.2 mg/dL (0.0-0.3); TOTAL BILIRUBIN 1.1 mg/dL (0.0-1.0)
[2017-04-06 07:25] LABS: BASOPHILS # (AUTO) 0.4 K/uL (0.00-0.22); BASOPHILS % (AUTO) 3.6 % (0.0-2.0); EOSINOPHILS # (AUTO) 0.2 K/uL (0-0.4); EOSINOPHILS % (AUTO) 1.6 % (0.0-4.0); HEMATOCRIT 46.8 % (36-52); HEMOGLOBIN 15.4 g/dL (12.0-18.0); LYMPHOCYTES # (AUTO) 2.7 K/uL (2.0-11.5); LYMPHOCYTES % (AUTO) 24.3 % (20.5-51.1); MEAN CORPUSCULAR HEMOGLOBIN 28 pg (27-31); MEAN CORPUSCULAR HGB CONC 33 g/dL (33-37); MEAN CORPUSCULAR VOLUME 85 fL (80-94); MONOCYTES # (AUTO) 0.9 K/uL (0.8-1.0); MONOCYTES % (AUTO) 8.1 % (1.7-9.3); NEUTROPHILS % (AUTO) 62.4 % (42.2-75.2); PLATELET COUNT (AUTO) 300 K/uL (140-450); RED BLOOD CELL COUNT(AUTO) 5.52 MIL/uL (4.20-6.10); RED CELL DISTRIBUTION WIDTH 12.1 % (11.6-13.7); WHITE BLOOD COUNT (AUTO) 11.2 K/uL (4.8-10.8)
--- NOTE | 2017-04-06 07:36 | NUR ---
ENDORSED PT TO AM NURSE. PT IN STABLE CONDITION
--- NOTE | 2017-04-06 07:38 | NUR ---
RECEIVED BEDSIDE REPORT FROM NIGHT RN. PT SLEEPING IN BED. AAOX4. NO S/S OF ACUTE DISTRESS. PT DENIES PAIN. IV SITE PATENT AND INTACT. TELE BOX IN PLACE. PLAN OF CARE DISCUSSED. PT VERBALIZED UNDERSTANDING. CALL LIGHT WITHIN REACH. SAFETY MEASURES ENSURED. WILL CONTINUE TO MONITOR.
[2017-04-06 07:43] VITALS: BP 112/68
[2017-04-06 08:19] LABS: T4 (THYROXINE) 11.8 ug/dL (4.5-12.0)
[2017-04-06] MEDS ORDERED: PANTOPRAZOLE 40 MG INJ VIAL IVP SCH ×2 (09:00)
[2017-04-06] MEDS ORDERED: LACTOBACILLUS RHAMNOSUS GG 1 EACH CAP PO SCH ×2 (09:00)
[2017-04-06] MEDS: SODIUM CHLORIDE 1 GM TAB PO SCH (09:12)
--- NOTE | 2017-04-06 09:16 | NUR ---
AM MEDICATIONS GIVEN WITH EDUCATION. PT VERBALIZED UNDERSTANDING. CALL LIGHT WITHIN REACH. SAFETY MEASURES ENSURED. WILL CONTINUE TO MONITOR.
[2017-04-06 12:00] VITALS: BP 135/74
--- NOTE | 2017-04-06 12:09 | NUR ---
PT SLEEPING IN BED. NO S/S OF ACUTE DISTRESS. CALL LIGHT WITHIN REACH. SAFETY MEASURES ENSURED. WILL CONTINUE TO MONITOR.
[2017-04-06] MEDS: LORazepam 1 MG TAB PO PRN (14:24)
[2017-04-06] MEDS: LEVOFLOXACIN 750 MG/D5W PREMIX 150 ML IV SCH (14:26)
--- NOTE | 2017-04-06 14:29 | NUR ---
PT RESTING IN BED. NO S/S OF ACUTE DISTRESS. PT DENIES PAIN. CALL LIGHT WITHIN REACH. SAFETY MEASURES ENSURED. WILL CONTINUE TO MONITOR.
[2017-04-06 16:00] VITALS: BP 113/68
--- NOTE | 2017-04-06 16:10 | NUR ---
PT RESTING IN BED. NO S/S OF ACUTE DISTRESS. PT DENIES PAIN. CALL LIGHT WITHIN REACH. SAFETY MEASURES ENSURED. WILL CONTINUE TO MONITOR.
--- NOTE | 2017-04-06 18:05 | NUR ---
SPOKE TO PT REGARDING EGD. PT STATES HE DOESN'T WANT TO DO IT BECAUSE HE FEELS ITS NOT NECESSARY RIGHT NOW. WILL NOTIFY DR. POLLOCK.
--- NOTE | 2017-04-06 19:00 | NUR ---
PT STATES HE WANTS TO LEAVE AGAINST MEDICAL ADVICE BECAUSE HE FEELS GOOD. PT EDUCATED ON RISK. DR. BLANK MADE AWARE. IV TAKEN OUT TIP INTACT. PT AMBULATED TO LOBBY.
[2017-04-07] MEDS ORDERED: PANTOPRAZOLE 40 MG INJ VIAL IVP SCH (09:00)
[2017-04-07] MEDS ORDERED: SENNA 8.6 MG TAB PO SCH (09:00)
== END 2017-04-06 19:00 | disposition left against medical advice (07) | DRG 445 ==
LOC: MED 09:17 → MTU 10:59 → UNDOADMOB 11:07 → MTU 11:07 → INTOOBSV 11:07 → OBSVTOIN 04-06 16:29
PROVIDERS: ADMIT Family Medicine Sports Medicine; ATTEND Family Medicine Sports Medicine
DX: K80.50 Calculus of bile duct without cholangitis or cholecystitis without obstruction (principal); R65.10 Systemic inflammatory response syndrome (SIRS) of non-infectious origin without acute organ dysfunction; E87.8 Other disorders of electrolyte and fluid balance, not elsewhere classified; E72.20 Disorder of urea cycle metabolism, unspecified; E87.1 Hypo-osmolality and hyponatremia; E83.52 Hypercalcemia; G43.A0 Cyclical vomiting, in migraine, not intractable; K82.8 Other specified diseases of gallbladder; E80.6 Other disorders of bilirubin metabolism; E87.6 Hypokalemia; K76.0 Fatty (change of) liver, not elsewhere classified; F12.90 Cannabis use, unspecified, uncomplicated; F17.210 Nicotine dependence, cigarettes, uncomplicated; E78.5 Hyperlipidemia, unspecified; F41.9 Anxiety disorder, unspecified; E66.9 Obesity, unspecified; Z68.32 Body mass index [BMI] 32.0-32.9, adult; Z53.21 Procedure and treatment not carried out due to patient leaving prior to being seen by health care provider
CPT/HCPCS: 36415; 71010; 74000; 76700; 80048; 80053; 80076; 80305; 81001; 82140; 82150; 83605; 83690; 83735; 83880; 84100; 84436; 84439; 84443; 84479; 85025; 85610; 85730; 87040; 87081; 87086; 93005; 96372; 96374; 99285; C9113; G0378; J0500; J1956; J2405; J3480; J3490; J7030; Q0092

== ENCOUNTER 2022-01-09 06:20 | Emergency (ER) | payer BC ==
[~2022-01-09] VITALS: Ht 165.1 cm; Wt 90.7 kg
[~2022-01-09 06:20] MED LIST: LORA-476 PO
[2022-01-09 06:40] VITALS: BP 141/96
--- NOTE | 2022-01-09 06:43 | NUR ---
TO LOBBY A/W BED, AMBULATORY
[2022-01-09] MEDS ORDERED: NACL 0.9% 1,000 ML IV ONE (06:45)
[2022-01-09] MEDS ORDERED: AZITHROMYCIN 250 MG TAB PO ONE (06:45)
[2022-01-09 07:20] LABS: BASOPHILS % (AUTO) 0.4 % (0.0-2.0); EOSINOPHILS % (AUTO) 0.3 % (0.0-4.0); HEMATOCRIT 41.1 % (36-52); HEMOGLOBIN 14.1 g/dL (12.0-18.0); LYMPHOCYTES # (AUTO) 2.5 K/uL (2.0-11.5); LYMPHOCYTES % (AUTO) 20.2 % (20.5-51.1); MEAN CORPUSCULAR HEMOGLOBIN 29 pg (27-31); MEAN CORPUSCULAR HGB CONC 34 g/dL (33-37); MEAN CORPUSCULAR VOLUME 83.7 fL (80-94); MONOCYTES # (AUTO) 0.6 K/uL (0.8-1.0); MONOCYTES % (AUTO) 4.7 % (1.7-9.3); NEUTROPHILS # (AUTO) 9.1 K/uL (1.8-7.7); NEUTROPHILS % (AUTO) 74.4 % (42.2-75.2); PLATELET COUNT (AUTO) 291 K/uL (140-450); RED BLOOD CELL COUNT(AUTO) 4.91 MIL/uL (4.20-6.10); RED CELL DISTRIBUTION WIDTH 12.9 % (11.6-13.7); WHITE BLOOD COUNT (AUTO) 12.2 K/uL (4.8-10.8)
--- NOTE | 2022-01-09 07:26 | NUR ---
PATIENT AMBULATED TO BED 1.
[2022-01-09 07:38] VITALS: BP 138/85
--- NOTE | 2022-01-09 07:39 | NUR ---
WALKED IN C/O NVD ONSET 5 DAYS AGO. STATES 10 EPISODES OF EMESIS TODAY. PT STATES CANT KEEP FOOD AND LIQUID DOWN. AAOX4, AMBULATORY, VITALS STABLE, DENIES FEVER OR COUGH, DENIES CP, ON ROOM AIR. BLOOD DRAWN BY LAB. IV ESTABLISHED ON LEFT AC 20 G
[2022-01-09 07:45] LABS: ALBUMIN 3.9 g/dL (3.4-5.0); ANION GAP 14.6 (8-16); CARBON DIOXIDE 25.7 mmol/L (21-32); CREATININE 0.8 mg/dL (0.6-1.3); POTASSIUM 3.3 mmol/L (3.5-5.1); TOTAL BILIRUBIN 1.2 mg/dL (0.0-1.0)
[2022-01-09] MEDS ORDERED: IMO2 PO (08:02)
--- NOTE | 2022-01-09 08:02 | NUR ---
TOLERATED PO MEDS WELL. DENIES NAUSEA OR VOMITING AT THIS TIME.
--- NOTE | 2022-01-09 08:30 | NUR ---
Patient discharged with v/s stable. Written and verbal after care instructions given and explained. Patient alert, oriented and verbalized understanding of instructions. Ambulatory with steady gait. All questions addressed prior to discharge. ID band removed. Patient advised to follow up with PMD. Rx of LOPERAMIDE given. Patient educated on indication of medication including possible reaction and side effects. Opportunity to ask questions provided and answered.
--- NOTE | 2022-01-10 10:30 | NUR ---
LATE ENTRY- 0.9% NS BOLUS COMPLETED 01/09/22 AT 0830.
== END 2022-01-09 08:30 | disposition home or self-care (01) ==
LOC: MED 06:20
DX: K52.9 Noninfective gastroenteritis and colitis, unspecified (principal); R11.2 Nausea with vomiting, unspecified; Z79.899 Other long term (current) drug therapy
CPT/HCPCS: 36415; 80053; 83690; 85025; 96360; 99283; J7030